=== PATIENT | female | born 1975 | race Asian ===

== ENCOUNTER 2018-12-13 01:38 | Emergency (ER) | payer OTHER, MEDICAID, SELFPAY ==
[2018-12-13 01:45] VITALS: BP 130/112; PULSE 119; RESP 20; TEMP 36.7; O2SAT 98; BMI 20.1
--- NOTE | 2018-12-13 01:52 | ED_ITS ---
HPI - General Adult General Chief complaint: Urogenital-Female Stated complaint: UTI Time Seen by Provider: 12/13/18 01:52 Source: patient Mode of arrival: ambulatory Limitations: no limitations History of Present Illness HPI narrative: Patient is a 43-year-old female here for evaluation of dysuria and lower abdominal pain and lower back pain. Patient states that it feels like she has urinary tract infection. States the symptoms started approximately 24 hours ago. No vomiting. She also describes breast tenderness. She states she has had urinary tract infections in the past however none have been this bad. She is urinary frequency and urgency. She was concerned that something more concerning than a urinary tract infection was going on because of the severity of the symptoms. She was concerned that she potentially has having problems coming off of the Depo shot which she has been on for 10-15 years. Her last shot was the end of last year. She has not had a menstrual cycle since then. Related Data Previous Rx's Medication Instructions Recorded cephalexin [Keflex] 500 mg PO BID 5 Days #10 cap 12/13/18 phenazopyridine [Pyridium] 100 mg PO TID PRN 2 Days #6 tab 12/13/18 Review of Systems Constitutional Denies fever(s) and Denies headache(s) ENT Ears, Nose, Mouth, and Throat: Denies headache(s) Cardiovascular Denies chest pain and Denies dyspnea Respiratory Denies dyspnea Gastrointestinal Gastrointestinal: Reports abdominal pain, Denies nausea and Denies vomiting Genitourinary Reports dysuria, Denies flank pain, Reports urinary incontinence, Reports urinary hesitancy and Reports urinary urgency Musculoskeletal Denies myalgias and Denies arthralgias Integumentary/Breasts Denies rash Neurologic Denies headache(s) Hematologic/Lymphatic Denies easy bleeding and Denies easy bruising [facility] Medical History Patient denies medical problems (Acute) Social History lives independently: Yes Social History lives independently: Yes Exam Initial Vital Signs Initial Vital Signs: Vital Signs Temperature 98.1 F 12/13/18 01:45 Pulse Rate 119 H 12/13/18 01:45 Respiratory Rate 20 12/13/18 01:45 Blood Pressure 130/112 H 12/13/18 01:45 Pulse Oximetry 98 12/13/18 01:45 Const General: cooperative, well developed, well groomed and No acute distress Orientation: alert and oriented x3 Resp Effort & Inspection: normal respiratory effort Auscultation: clear to auscultation bilaterally Cardio Rate: tachycardic Rhythm: regular rhythm GI Inspection: non-distended Palpation: tender (Lower abdomen) Back/Spine/Pelvis Back: No CVA tenderness Skin Lesions: no lesions Rashes: no rashes Neuro General: alert and awake Cognition: normal cognition Speech: speech normal Extrem General: normal to inspection and capillary refill normal Psych Appearance: grossly normal and well kempt Course Orders Ordered: ED Orders 12/13/18 01:48 Urine Culture Stat Urine Microscopic Stat Discontinued Medications Cephalexin HCl (Keflex) 500 mg PO NOW ONE Stop: 12/13/18 02:22 Last Admin: 12/13/18 02:26 Dose: 500 mg Phenazopyridine HCl (Pyridium) 100 mg PO NOW ONE Stop: 12/13/18 02:22 Last Admin: 12/13/18 02:26 Dose: 100 mg Vital Signs - 8 hr 12/13/18 01:45 Temperature 98.1 F Pulse Rate 119 H Respiratory Rate 20 Blood Pressure 130/112 H Pulse Oximetry 98 Medical Decision Making Lab Data Lab results reviewed: Yes I reviewed the patient's lab results. Lab Results 12/13/18 Range/Units 01:48 Urine RBC 10-30/hpf H (0-5/HPF) Urine WBC >100/hpf H (0-5/HPF) Ur Squamous Epith Cells 0-1 /hpf (0-5/HPF) Urine Bacteria Many (>30) H (None) Ur Culture Indicated? Specimen cultured Point of Care Testing Test Results Negative Urine Dip Bedside Urine Glucose Negative Bedside Urine Bilirubin - Negative Bedside Urine Ketone ++ 40 Urine Specific [place] 1.020 Bedside Urine Occult Blood +++ Bedside Urine pH 6.0 Bedside Urine Protein ++ 100 Bedside Urine Urobilinogen - Negative Bedside Urine Nitrite - Negative Bedside Urine Leukocytes +++ 500 Esterase Point of care testing: Point of Care Testing Test Results Negative Urine Dip Bedside Urine Glucose Negative Bedside Urine Bilirubin - Negative Bedside Urine Ketone ++ 40 Urine Specific [place] 1.020 Bedside Urine Occult Blood +++ Bedside Urine pH 6.0 Bedside Urine Protein ++ 100 Bedside Urine Urobilinogen - Negative Bedside Urine Nitrite - Negative Bedside Urine Leukocytes +++ 500 Esterase MDM Narrative Medical decision making narrative: Patient's urinalysis is consistent with a urinary tract infection. She has no signs of pyelonephritis. Samantha test was negative. She was given a dose of Pyridium and Keflex here in the emergency department a prescription for these to go home with. Urine culture was pending at the time of discharge in patient was informed of this. She was given return precautions and follow-up instructions. She expressed understanding and agreement plan. Discharge Plan Departure Patient Disposition: Home Clinical Impression: Urinary tract infection Qualifiers: Urinary tract infection type: acute cystitis Hematuria presence: with hematuria Qualified Code(s): N30.01 - Acute cystitis with hematuria Instructions: DI for Urinary Tract Infection (UTI) Activity Restrictions/Additional Instructions: Take all the medications as directed. Increase your fluid intake. Return to the emergency department any worsening symptoms, inability to take the antibiotics, worsening pain, or any other concerning symptoms. Contact your primary provider for follow-up. A urine culture was pending at the time of your discharge. If we need to change any antibiotics we will call you to let you know. Prescriptions: New phenazopyridine [Pyridium] 100 mg tablet 100 mg PO TID PRN (Reason: pain) 2 Days Qty: 6 RF: 0 cephalexin [Keflex] 500 mg capsule 500 mg PO BID 5 Days Qty: 10 RF: 0
[2018-12-13 02:08] LABS: Bacteria Urine Many (>30); Culture Indicated Urine Specimen Cultured; RBC Urine 10-30/HPF (0-5/HPF); Squamous Epithelial Cell Urine 0-1 /HPF (0-5/HPF); WBC Urine >100/HPF (0-5/HPF)
[2018-12-13] MEDS: PHENAZOPYRIDINE 100 MG TABLET PO (02:26)
[2018-12-13] MEDS: cephALEXin 250 MG CAPSULE 500 MG PO (02:26)
[2018-12-13 02:29] VITALS: BP 108/76; PULSE 95; RESP 18; O2SAT 98
== END 2018-12-13 02:52 | disposition home or self-care (01) ==
PROVIDERS: Emergency Provider Emergency Medicine
DX: N30.01 Acute cystitis with hematuria (principal)
CPT/HCPCS: 81003; 81015; 81025; 87077; 87086; 87186; 99282; 99283

== ENCOUNTER 2019-12-05 22:07 | Emergency (ER) | payer OTHER, MEDICAID, SELFPAY ==
--- NOTE | 2019-12-05 22:26 | ED.ABDPAIN ---
HPI - Abdominal Pain General Chief Complaint: Urogenital-Female Stated Complaint: Abdominal Pain Time Seen by Provider: 12/05/19 22:10 Source: patient Mode of arrival: Ambulatory Limitations: no limitations History of Present Illness HPI narrative: 44F non smoker without chronic medical problems presents with the chief complaint of some pelvic discomfort and vaginal discharge for the past few days. Additionally she has some dysuria, frequency and urgency. She denies any vaginal bleeding. Her symptoms started after having unprotected sex at a [facility] a few days ago. She denies any nausea or vomiting. She denies any fever or chills. MD complaint: abdominal pain Onset (ago): day(s) Pain Consistency: constant Location: suprapubic Severity: moderate Quality: cramping and aching Relieving factors: nothing Exacerbating factors: nothing Associated symptoms: denies other symptoms Related Data Previous Rx's Medication Instructions Recorded doxycycline hyclate 100 mg PO BID #20 tab 12/06/19 metronidazole [Flagyl] 500 mg PO BID 14 Days #28 tab 12/06/19 Allergies Allergy/AdvReac Type Severity Reaction Status Date / Time No Known Drug Allergies Allergy Verified 12/06/19 00:40 Review of Systems Constitutional Constitutional: Denies chills, Denies fatigue, Denies fever(s), Denies frequent falls, Denies lethargy and Denies weakness Eyes Eyes: Denies change in vision, Denies eye discharge, Denies irritation and Denies loss of vision ENT Ears, Nose, Mouth, and Throat: Denies change in voice, Denies dizziness, Denies neck pain, Denies sore throat and Denies throat swelling Cardiovascular Cardiovascular: Denies chest pain, Denies irregular heart rhythm, Denies lightheadedness, Denies palpitations, Denies dyspnea, Denies dyspnea on exertion and Denies orthopnea Respiratory Respiratory: Denies cough, Denies dyspnea, Denies dyspnea on exertion and Denies wheezing Gastrointestinal Gastrointestinal: Denies abdominal pain, Denies change in bowel habits, Denies diarrhea, Denies nausea and Denies vomiting Genitourinary Genitourinary: Reports difficulty voiding and Reports vaginal discharge Musculoskeletal Musculoskeletal: Denies neck pain and Denies numbness Integumentary/Breasts Skin/Breast: Denies pruritus, Denies erythema, Denies rash and Denies wounds Neurologic Neurologic: Denies behavioral changes, Denies confusion, Denies dizziness, Denies frequent falls, Denies loss of vision, Denies numbness and Denies weakness Psychiatric Psychiatric: Denies anxiety, Denies behavioral changes, Denies confusion, Denies depression, Denies homicidal ideation and Denies suicidal ideation Endocrine Endocrine: Denies fatigue, Denies flushing and Denies palpitations Hematologic/Lymphatic Hematologic/Lymphatic: Denies easy bruising Allergic/Immunologic Allergic/Immunologic: Denies urticaria, Denies throat swelling and Denies wheezing Patient History Medical History Patient denies medical problems (Acute) Social History lives independently: Yes Smoking Status: Never smoker alcohol intake frequency: 0-2 drinks per day Substance Use Type: does not use Exam Narrative Exam Narrative: GENERAL: [44] year old patient appears stated age. Well-nourished, well-developed patient, in mild distress. Anxious HEAD: Atraumatic. Normocephalic. EYES: Pupils equal round and reactive. Extraocular motions intact. No scleral icterus. No injection or drainage. ENT: Nose without bleeding, purulent drainage. Throat without erythema, tonsillar hypertrophy or exudate. Airway patent. NECK: Trachea midline. Non tender CARDIOVASCULAR: Regular rate and rhythm without murmurs, gallops, or rubs. RESPIRATORY: Clear to auscultation. Breath sounds equal bilaterally. No wheezes, rales, or rhonchi. GASTROINTESTINAL: Abdomen soft, mild suprapubic pain, nondistended. PELVIC: moderate discharge noted, negative whiff test. No adnexal tenderness or CMT. No lacerations EXTREMITIES: No edema or joint tenderness. BACK: Nontender without deformity or crepitance. No flank tenderness. NEURO: AOx3. SKIN: No rash or erythema of visible areas Initial Vital Signs Initial Vital Signs: Vital Signs Temperature 97.9 F 12/05/19 22:31 Pulse Rate 79 12/05/19 22:31 Respiratory Rate 18 12/05/19 22:31 Blood Pressure 140/83 12/05/19 22:31 Pulse Oximetry 97 12/05/19 22:31 Course Orders Ordered: ED Orders 12/05/19 22:30 Chlamydia Gonorrhea PCR -URINE Stat Test Urine Stat 12/06/19 00:40 Wet Prep Tric BV Lizzy Stat Discontinued Medications Ceftriaxone Sodium (Rocephin) 250 mg IM NOW ONE Stop: 12/06/19 00:36 Last Admin: 12/06/19 00:59 Dose: 250 mg Documented by: MOHIT Vital Signs Vital signs: Vital Signs - 8 hr 12/06/19 01:11 Pulse Rate 71 Respiratory Rate 16 Blood Pressure [Left Arm] 124/61 Pulse Oximetry 99 MDM - Abdominal Pain Lab Data Labs: Lab Results 12/05/19 12/05/19 Range/Units 22:30 22:30 Urine Test Negative (Negative) Ur Chlamydia DNA (PCR) Not detected N gonorrhoeae DNA (PCR) Not detected Point of care testing: Urine Dip Bedside Urine Glucose Negative Bedside Urine Bilirubin - Negative Bedside Urine Ketone - Negative Urine Specific [place] 1.010 Bedside Urine Occult Blood - Negative Bedside Urine pH 6.0 Bedside Urine Protein - Negative Bedside Urine Urobilinogen - Negative Bedside Urine Nitrite - Negative Bedside Urine Leukocytes - Negative Esterase Discharge Plan Departure Patient Disposition: Home Clinical Impression: Acute pelvic inflammatory disease (PID) Discharge Date/Time: 12/06/19 01:16 Instructions: DI for Pelvic Inflammatory Disease Activity Restrictions/Additional Instructions: *You have been diagnosed with [ acute pelvic inflammatory disease ] *What to do: *Take medications as directed *Follow up with your primary care provider in 2-3 days, call for an appointment. Let them know you were seen in the Emergency Department and that we ask that you be seen in follow up *Return to ER if you should have any new, worsening or concerning symptoms Prescriptions: New doxycycline hyclate 100 mg tablet 100 mg PO BID Qty: 20 RF: 0 metronidazole [Flagyl] 500 mg tablet 500 mg PO BID 14 Days Qty: 28 RF: 0 Referrals: Kiki Ruggiero PA-C [Primary Care Provider] -
[2019-12-05 22:31] VITALS: BP 140/83; PULSE 79; RESP 18; TEMP 36.6; O2SAT 97; BMI 19.5
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
[2019-12-05 23:43] LABS: Pregnancy Test Urine Negative (Negative)
[2019-12-06 00:48] LABS: Urine N gonorrhoeae NOT DETECTED
[2019-12-06 00:49] LABS: Urine Chlamydia NOT DETECTED
[2019-12-06] MEDS: cefTRIAXone 500 MG VIAL 250 MG IM (00:59)
[2019-12-06 01:11] VITALS: BP 124/61; PULSE 71; RESP 16; O2SAT 99
== END 2019-12-06 01:16 | disposition home or self-care (01) ==
PROVIDERS: Emergency Provider Emergency Medicine; PCP Physician Assistant Medical
DX: N73.9 Female pelvic inflammatory disease, unspecified (principal)
CPT/HCPCS: 81003; 81025; 87210; 87491; 87591; 96372; 99283; 99284; J0696

== ENCOUNTER 2019-12-06 20:10 | Emergency (ER) | payer OTHER, MEDICAID, SELFPAY ==
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
[2019-12-06 20:25] VITALS: BP 159/90; PULSE 99; RESP 18; TEMP 36.9; O2SAT 99; BMI 19.7
[2019-12-06] MEDS: predniSONE 20 MG TABLET 40 MG PO (20:57)
[2019-12-06] MEDS: diphenhydrAMINE 25 MG TABLET PO (20:57)
[2019-12-06 21:03] VITALS: BP 111/68; PULSE 73; RESP 16; O2SAT 98
== END 2019-12-06 21:03 | disposition home or self-care (01) ==
PROVIDERS: Emergency Provider Emergency Medicine; PCP Physician Assistant Medical
DX: R21 Rash and other nonspecific skin eruption (principal); T36.4X5A Adverse effect of tetracyclines, initial encounter
CPT/HCPCS: 99282; 99283

== ENCOUNTER → 2023-06-27 09:23 | Outpatient (CLI) | payer OTHER, MEDICAID, SELFPAY | PROVIDERS: PCP Physician Assistant Medical; Visit Provider Student in an Organized Health Care Education/Training Program | DX: L03.90 Cellulitis, unspecified (principal) | CPT/HCPCS: 87070; 87075; 87205 ==

== ENCOUNTER → 2024-01-05 14:44 | Outpatient (CLI) | payer OTHER, MEDICAID, SELFPAY | PROVIDERS: PCP Family Medicine; Visit Provider Physician Assistant | DX: R07.0 Pain in throat (principal) | CPT/HCPCS: 87070 ==

== ENCOUNTER → 2024-01-07 12:38 | Outpatient (CLI) | payer OTHER, MEDICAID, SELFPAY ==
[2024-01-07 14:29] LABS: Add Manual Diff / Slide Review NO; Basophils Absolute Auto 0 /uL (0-100); Basophils Percent Auto 0.2 % (0-2); Eosinophils Absolute Auto 0 /uL (0-450); Eosinophils Percent Auto 0.5 % (2-4); Hematocrit 40.6 % (36-46); Lymphocytes Absolute Auto 1000 /uL (1100-4500); Lymphocytes Percent Auto 13.9 % (25-40); Mean Corpuscular HGB Conc 34.5 % (30-36); Mean Corpuscular Hemoglobin 32.6 PG (26-34); Mean Corpuscular Volume 94.6 fL (80-100); Monocytes Absolute Auto 500 /uL (0-900); Monocytes Percent Auto 6.7 % (3-14); Neutrophils Absolute Auto 5900 /uL (1500-7000); Neutrophils Percent Auto 78.7 % (50-75); Platelet Count 286 X10^3/uL (150-400); Red Blood Cell Count 4.29 X10^6/uL (4.0-5.2); Red Cell Distribution Width 14.7 % (11.6-14.8); White Blood Cell Count 7.5 X10^3/uL (4.5-11.0)
[2024-01-07 14:52] LABS: Alanine Aminotransferase 15 IU/L (<35); Albumin Globulin Ratio 1.7 (1.0-2.8); Alkaline Phosphatase 81 U/L (38-126); Aspartate Aminotransferase 20 IU/L (14-36); BUN Creatinine Ratio 11.7 (6-22); Bilirubin Total 0.3 mg/dL (0.2-1.3); Blood Urea Nitrogen 7 mg/dL (7-17); Calcium 8.6 mg/dL (8.4-10.2); Carbon Dioxide 21 mmol/L (22-32); Chloride 102 mmol/L (98-107); Estimated Glomerular Filt Rate > 60 mL/min (>60); Globulin 2.4 g/dL (1.7-4.1); Glucose 117 mg/dL (70-100); HEMOLYSIS < 15 (0-50); Potassium 4.6 mmol/L (3.4-5.1); Sodium 130 mmol/L (137-145); Total Protein 6.4 g/dL (6.3-8.2)
[2024-01-07 15:18] LABS: TSH w/ Reflex to FT4 0.72 uIU/mL (0.47-4.68)
== END ==
PROVIDERS: PCP Family Medicine; Referring Provider Physician Assistant; Visit Provider Physician Assistant
DX: R07.0 Pain in throat (principal); F41.0 Panic disorder [episodic paroxysmal anxiety]; G47.00 Insomnia, unspecified
CPT/HCPCS: 36415; 80053; 84443; 85025

== ENCOUNTER 2024-01-08 11:42 | Emergency (ER) | payer OTHER, MEDICAID, SELFPAY ==
[2024-01-08 11:48] VITALS: BP 126/65; PULSE 70; RESP 14; TEMP 36.9; O2SAT 97; BMI 19.8
--- NOTE | 2024-01-08 12:08 | EKG_ITS ---
[facility] [address] [place] [address] Test Date: 2024-01-08 Pat Name: Ventura Montoya Department: [facility] Room: Gender: Female Data Recovery Planner: : [id number] Requested By: Order Number: [id number] Reading MD: Sadi Cotto Measurements Intervals [place] Rate: 67 P: 34 [place]: 138 QRS: 70 QRSD: 82 T: 67 QT: 406 QTc: 429 Interpretive Statements Normal sinus rhythm Electronically Signed On 01-08-2024 16:49:51 PDT by Sadi Cotto
--- NOTE | 2024-01-08 13:06 | ED.CHESTPAIN ---
HPI - Chest Pain General Chief Complaint: Chest Pain Stated Complaint: states insomnia 6 months Time Seen by Provider: 01/08/24 12:32 Source: patient Mode of arrival: Ambulatory Limitations: no limitations History of Present Illness HPI narrative: 48-year-old female presents for difficulty sleeping and panic attacks as well as sore throat. History is limited as patient states her throat hurts too much for her to talk and prefers to text on her cell phone. Patient states that she has not slept in 6 months and is having panic attacks daily. She states that the medicine she has been given in the past are not working anymore. Her panic attacks or causing her to have chest pain. Related Data Previous Rx's Medication Instructions Recorded hydroxyzine HCl 25 mg tablet 25 mg PO QID PRN panic attack #30 01/05/24 tabs naproxen 500 mg tablet 500 mg PO BID #60 tabs 01/05/24 Allergies Allergy/AdvReac Type Severity Reaction Status Date / Time No Known Drug Allergies Allergy Verified 01/08/24 12:06 Patient History Medical History (Updated 01/08/24 @ 13:37 by Leslie Reyez RN) Patient denies medical problems Social History lives independently: Yes Smoking Status: Never smoker Smoking Status: Never smoker alcohol intake frequency: 0-2 drinks per day Substance Use Type: does not use Exam Initial Vital Signs Initial Vital Signs: Vital Signs Temperature 98.4 F 01/08/24 11:48 Pulse Rate 70 01/08/24 11:48 Respiratory Rate 14 01/08/24 11:48 Blood Pressure 126/65 01/08/24 11:48 Pulse Oximetry 97 01/08/24 11:48 Oxygen Delivery Method Room Air 01/08/24 11:48 Course Orders Ordered: ED Orders 01/08/24 11:55 EKG-12 Lead Stat 01/08/24 13:12 Chest [XR chest 1V] Stat Discontinued Medications Diphenhydramine HCl (Diphenhydramine 50 Mg/Ml Vial) 50 mg IV NOW ONE Stop: 01/08/24 13:12 Droperidol (Droperidol 5 Mg/2 Ml Vial) 2.5 mg IV NOW ONE Stop: 01/08/24 13:12 Sodium Chloride (Normal Saline 0.9%) 1,000 mls @ 1,000 mls/hr IV BOLUS ONE Stop: 01/08/24 14:10 Vital Signs Vital signs: Vital Signs - 8 hr 01/08/24 11:48 Temperature 98.4 F Pulse Rate 70 Respiratory Rate 14 Blood Pressure 126/65 Pulse Oximetry 97 Oxygen Delivery Method Room Air MDM - Chest Pain MDM Narrative Medical decision making narrative: Patient presenting for insomnia, sore throat, and subsequent panic attacks. Physical exam is fairly unremarkable. After receiving throat swab patient requested to leave. Patient eloped from the emergency department prior to receiving any discharge paperwork or testing results. Discharge Plan Departure Patient Disposition: Left Against Medical Advice Clinical Impression: Left against medical advice Prescriptions: No Action hydroxyzine HCl 25 mg tablet 25 mg PO QID PRN (Reason: panic attack) Qty: 30 0RF naproxen 500 mg tablet 500 mg PO BID Qty: 60 0RF Referrals: Reno Alex MD [Primary Care Provider] - Stand Alone Forms: Patient Portal/API, Against Medical Advice
--- NOTE | 2024-01-08 13:12 | DI.RAD.S_ITS ---
PROCEDURE: XR CHEST 1V INDICATIONS: chest pain TECHNIQUE: One view of the chest was acquired. COMPARISON: None. FINDINGS: Surgical changes and devices: None. Lungs and pleura: Lungs are clear. No pleural effusions or pneumothorax. Mediastinum: Mediastinal contours appear normal. Heart size is normal. Bones and chest wall: No suspicious bony lesions. Overlying soft tissues appear unremarkable. IMPRESSION: No acute cardiopulmonary process. Dictated by: Krystal Mazariegos M.D. on 01/08/2024 at 13:48 Approved by: Krystal Mazariegos M.D. on 01/08/2024 at 13:48
--- NOTE | 2024-01-08 13:26 | PC.NURSE ---
ED Processing Specialist walked into the room, asked if the patient was okay with going onto the alarm security or surveillance monitor due to complaints of sharp chest pain. Patient refused, and asked to be hooked up to the monitor and asked to leave after her swab was obtained.
== END 2024-01-08 13:33 | disposition left against medical advice (07) ==
PROVIDERS: Emergency Provider Emergency Medicine; PCP Family Medicine
DX: J02.9 Acute pharyngitis, unspecified (principal); G47.00 Insomnia, unspecified; F41.0 Panic disorder [episodic paroxysmal anxiety]; Z53.29 Procedure and treatment not carried out because of patient's decision for other reasons; R07.9 Chest pain, unspecified
CPT/HCPCS: 71045; 93005; 99281; 99283